=== PATIENT | male | born 1940 | race Caucasian/White ===

== ENCOUNTER 2016-10-24 08:17 | Inpatient (IN) | payer MEDICARE ==
[~2016-10-24] VITALS: Ht 177.8 cm; Wt 100.1 kg
[~2016-10-24 08:17] MED LIST: GLUCOTROL XL10 MG PO; GLUCOTROL10 MG PO; INDERAL LA120 MG PO; LIPITOR20 MG PO; PRINIVIL10 MG PO; ZYLOPRIM 100MG100 MG PO
[2017-05-21 16:18] VITALS: BP 149/65; PULSE 60; TEMP 97.8
[2017-05-21 16:44] LABS: ADJUSTED CALCIUM 9.5 mg/dL (8.4-10.2); ALBUMIN 4.1 gm/dL (3.5-5.0); BILIRUBIN,TOTAL 0.6 mg/dL (0.0-1.0); CALCIUM 9.6 mg/dL (8.4-10.2); CREATININE, serum 0.78 mg/dL (0.66-1.25); POTASSIUM 4.4 mmol/L (3.4-5.0); PROTHROMBIN TIME 10.9 SECONDS (9.7-12.8); TOTAL PROTEIN 7.2 gm/dL (6.4-8.2)
[2017-05-21 16:46] LABS: PARTIAL THROMBOPLASTIN TIME 26.7 SECONDS (26.0-37.0)
[2017-05-21 16:48] LABS: HEMATOCRIT 39.2 % (42.0-52.0); MEAN CELL VOLUME 95 fl (80.0-100.0); MEAN CORPUSCULAR HEMOGLOBIN 31 pg (27.0-31.0); MEAN CORPUSCULAR HGB CONC 33 g/dl (33.0-37.0); MEAN PLATELET VOLUME 10.1 fl (7.4-10.4); PLATELET COUNT 149 K/mm3 (130-400); RED BLOOD COUNT 4.15 M/mm3 (4.20-5.60); REDCELL DISTRIBUTION WIDTH-CV 13.5 % (11.5-14.5); WHITE BLOOD COUNT 7.4 K/mm3 (4.8-10.8)
[2017-05-21 18:03] VITALS: BP 149/59; PULSE 58; TEMP 97.6
[2017-05-21 22:10] VITALS: BP 120/52; PULSE 55; TEMP 98.1
[2017-05-22] VITALS (11 sets, daily range): BP systolic 109–148; BP diastolic 46–90; PULSE 55–80; TEMP 36–36.9
[2017-05-22 12:29] LABS: MEAN CELL VOLUME 98 fl (80.0-100.0); MEAN CORPUSCULAR HGB CONC 33 g/dl (33.0-37.0); MEAN PLATELET VOLUME 9.8 fl (7.4-10.4); PLATELET COUNT 118 K/mm3 (130-400); RED BLOOD COUNT 3.11 M/mm3 (4.20-5.60); REDCELL DISTRIBUTION WIDTH-CV 13.5 % (11.5-14.5)
[2017-05-22 12:35] LABS: HEMATOCRIT 30.4 % (42.0-52.0); HEMOGLOBIN 9.9 g/dl (13.5-18.0); MEAN CORPUSCULAR HEMOGLOBIN 32 pg (27.0-31.0)
[2017-05-22 12:36] LABS: ADD PATHOLOGY DIFF REVIEW NO
[2017-05-22 12:52] LABS: CALCIUM 7.3 mg/dL (8.4-10.2); CREATININE, serum 0.87 mg/dL (0.66-1.25); POTASSIUM 4.8 mmol/L (3.4-5.0)
[2017-05-22 13:33] LABS: BAND 25 % (0-10); MYELOCYTE 1 % (0-0); NEUTROPHILS 57 % (42.0-75.2); TOTAL CELLS COUNTED 100
[2017-05-22 13:34] LABS: PLATELET ESTIMATE NORMAL (NORMAL)
[2017-05-23] VITALS (11 sets, daily range): BP systolic 97–184; BP diastolic 41–68; PULSE 64–114; TEMP 97.5–98.8
[2017-05-23 07:00] LABS: MEAN CELL VOLUME 98 fl (80.0-100.0); MEAN CORPUSCULAR HGB CONC 32 g/dl (33.0-37.0); MEAN PLATELET VOLUME 10.7 fl (7.4-10.4); PLATELET COUNT 103 K/mm3 (130-400); RED BLOOD COUNT 2.82 M/mm3 (4.20-5.60); REDCELL DISTRIBUTION WIDTH-CV 13.7 % (11.5-14.5); WHITE BLOOD COUNT 8.2 K/mm3 (4.8-10.8)
[2017-05-23 07:02] LABS: HEMATOCRIT 27.6 % (42.0-52.0); HEMOGLOBIN 8.9 g/dl (13.5-18.0); MEAN CORPUSCULAR HEMOGLOBIN 32 pg (27.0-31.0)
[2017-05-23 07:03] LABS: ADD PATHOLOGY DIFF REVIEW NO
[2017-05-23 07:12] LABS: CALCIUM 7.5 mg/dL (8.4-10.2); CREATININE, serum 0.75 mg/dL (0.66-1.25); POTASSIUM 4.3 mmol/L (3.4-5.0)
[2017-05-23 07:58] LABS: BAND 21 % (0-10); METAMYELOCYTE 2 % (0-0); MYELOCYTE 7 % (0-0); NEUTROPHILS 48 % (42.0-75.2); PLATELET ESTIMATE DECREASED (NORMAL); TOTAL CELLS COUNTED 100
[2017-05-24] VITALS (9 sets, daily range): BP systolic 119–154; BP diastolic 23–65; PULSE 60–88; TEMP 97–98.3
[2017-05-24 06:54] LABS: MEAN CELL VOLUME 97 fl (80.0-100.0); MEAN CORPUSCULAR HGB CONC 33 g/dl (33.0-37.0); MEAN PLATELET VOLUME 11.1 fl (7.4-10.4); PLATELET COUNT 114 K/mm3 (130-400); RED BLOOD COUNT 2.86 M/mm3 (4.20-5.60); REDCELL DISTRIBUTION WIDTH-CV 13.6 % (11.5-14.5); WHITE BLOOD COUNT 8.9 K/mm3 (4.8-10.8)
[2017-05-24 06:58] LABS: HEMATOCRIT 27.8 % (42.0-52.0); HEMOGLOBIN 9.1 g/dl (13.5-18.0); MEAN CORPUSCULAR HEMOGLOBIN 32 pg (27.0-31.0)
[2017-05-24 07:11] LABS: CALCIUM 8.3 mg/dL (8.4-10.2); CREATININE, serum 0.67 mg/dL (0.66-1.25); MAGNESIUM 2.1 mg/dL (1.6-2.3); POTASSIUM 4.5 mmol/L (3.4-5.0)
[2017-05-25] VITALS (7 sets, daily range): BP systolic 108–173; BP diastolic 54–64; PULSE 60–80; TEMP 97–98.2
[2017-05-26] VITALS (8 sets, daily range): BP systolic 116–171; BP diastolic 45–84; PULSE 56–61; TEMP 97.8–98.7
[2017-05-27] VITALS (7 sets, daily range): BP systolic 126–168; BP diastolic 55–65; PULSE 53–88; TEMP 97.7–98.9
== END 2017-05-27 13:05 | disposition home health service (06) | DRG 654 ==
LOC: SURG 12-03 07:30
PROVIDERS: Urology
PROC: 07TC0ZZ Resection of Pelvis Lymphatic, Open Approach (ICD-10-PCS; 2017-05-22)
PROC: 0T1807C Bypass Bilateral Ureters to Ileocutaneous with Autologous Tissue Substitute, Open Approach (ICD-10-PCS; 2017-05-22)
PROC: 0T780DZ Dilation of Bilateral Ureters with Intraluminal Device, Open Approach (ICD-10-PCS; 2017-05-22)
PROC: 0VT00ZZ Resection of Prostate, Open Approach (ICD-10-PCS; 2017-05-22)
PROC: 0TTB0ZZ Resection of Bladder, Open Approach (ICD-10-PCS; principal; 2017-05-22 07:30)
DX: C67.5 Malignant neoplasm of bladder neck (principal); F10.231 Alcohol dependence with withdrawal delirium; E11.9 Type 2 diabetes mellitus without complications; I10 Essential (primary) hypertension; D50.0 Iron deficiency anemia secondary to blood loss (chronic); D69.6 Thrombocytopenia, unspecified
CPT/HCPCS: 99223; 99231-AI; 99232-AI; A9284; J0694; J1200; J1650; J1815; J1956; J2060; J2250; J2300; J2405; J2704; J2710; J2765; J2930; J3010; J3411; J3480; J7030